=== PATIENT | female | born 1975 | race African-American/Black ===

== ENCOUNTER 2017-02-12 19:39 | Emergency (ER) | payer OTHER ==
[2017-02-12 19:53] VITALS: BP 139/95; PULSE 88; TEMP 98.6; BMI 33.9
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
== END 2017-02-12 23:42 | disposition home or self-care (01) ==
LOC: JERFT 19:39
DX: Z77.21 Contact with and (suspected) exposure to potentially hazardous body fluids (principal); X58.XXXA Exposure to other specified factors, initial encounter; Y93.89 Activity, other specified; Y92.238 Other place in hospital as the place of occurrence of the external cause; Y99.0 Civilian activity done for income or pay
CPT/HCPCS: 99281-25

== ENCOUNTER 2020-06-14 02:50 | Day surgery (SDC) | payer OTHER ==
[2020-06-14 03:53] VITALS: BMI 37.9
[2020-06-14 04:49] LABS: BASO % 0.4 % (0-2.0); EOS % 1.5 % (0-4.5); HEMATOCRIT 39.1 % (32.4-45.2); HEMOGLOBIN 12.8 GM/dL (10.7-15.3); LYMPH % 14.7 % (8-40); MCH 30.5 pg (25.7-33.7); MCHC 32.6 g/dl (32.0-36.0); MEAN CELL VOLUME 93.7 fl (80-96); MONO % 4.8 % (3.8-10.2); NEUT % 78.6 % (42.8-82.8); PLATELET COUNT 366 K/MM3 (134-434); RBC 4.18 M/mm3 (3.60-5.2); RDW 13.7 % (11.6-15.6); WHITE BLOOD COUNT 10.1 K/mm3 (4.0-10.0)
[2020-06-14 05:00] LABS: INR 0.94 (0.83-1.09); PROTHROMBIN TIME (PATIENT) 11.6 SEC (9.7-13.0)
[2020-06-14 05:13] LABS: POTASSIUM 4.2 mmol/L (3.5-5.1)
[2020-06-14 05:15] LABS: CALCIUM 9.3 mg/dL (8.5-10.1)
[2020-06-14 05:16] LABS: ALBUMIN 4.2 g/dl (3.4-5.0); BLOOD UREA NITROGEN 10.8 mg/dL (7-18)
[2020-06-14 05:19] LABS: CREATININE 1.1 mg/dL (0.55-1.3)
[2020-06-14 05:20] LABS: BILIRUBIN,TOTAL 0.2 mg/dL (0.2-1); TOT PROT 8.4 g/dl (6.4-8.2)
[2020-06-14] MEDS ORDERED: ONDANSETRON 4 MG/2 ML VIAL IVPUSH PRN ×4 (05:57→09:27)
[2020-06-14] MEDS ORDERED: BISACODYL 5 MG TABLET.DR (FP) PO PRN ×2 (05:57→09:27)
[2020-06-14] MEDS ORDERED: ACETAMINOPHEN 325 MG TABLET (FP) PO PRN ×2 (05:57→09:27)
[2020-06-14] MEDS ORDERED: SIMETHICONE 80 MG TAB.CHEW (FP) PO PRN ×2 (05:57→09:27)
[2020-06-14] MEDS ORDERED: oxyCODONE HCL 5 MG TABLET PO PRN ×4 (05:57→09:27)
[2020-06-14] MEDS ORDERED: DOCUSATE SODIUM 100 MG CAPSULE (FP) PO PRN ×2 (05:57→09:27)
[2020-06-14] MEDS ORDERED: IBUPROFEN 800 MG/8 ML IJ IVPB PRN (05:57)
[2020-06-14] MEDS ORDERED: SUCCINYLCHOLINE CHLORIDE 200 MG/10 ML SYRINGE ONE (05:58)
[2020-06-14] MEDS ORDERED: ROCURONIUM BROMIDE 50 MG/5 ML SYRINGE ONE (05:58)
[2020-06-14] MEDS ORDERED: fentaNYL CITRATE 250 MCG/5 ML VIAL ONE (05:58)
[2020-06-14] MEDS ORDERED: PROPOFOL 20 ML ONE ×4 (05:58)
[2020-06-14] MEDS ORDERED: LACTATED RINGERS SOLUTION 1,000 ML/1,000 ML INFUS.BAG IV SCH ×2 (06:00)
[2020-06-14] MEDS ORDERED: ceFAZolin SODIUM 1 GM VIAL IVPB ONE (06:08)
[2020-06-14] MEDS ORDERED: GLYCOPYRROLATE 0.2 MG/1 ML VIAL ONE ×2 (06:49)
[2020-06-14] MEDS ORDERED: NEOSTIGMINE METHYLSULFATE 0.5 MG/ML - 10 ML MDV ONE (06:49)
[2020-06-14] MEDS ORDERED: DEXAMETHASONE SOD PHOSPHATE 4 MG/1 ML VIAL ONE (06:49)
[2020-06-14] MEDS ORDERED: HYDROmorphone HCl 2 MG/ML VIAL ONE (07:43)
[2020-06-14] MEDS ORDERED: HYDROmorphone HCl 2 MG/ML VIAL IVPUSH ONE ×2 (07:45→08:00)
[2020-06-14] MEDS ORDERED: LORazepam 2 MG/ML SDV VIAL IVPUSH ONE ×2 (08:00)
[2020-06-14] MEDS ORDERED: ACETAMINOPHEN INJECTION 100 ML IVPB ONE (08:21)
[2020-06-14] MEDS ORDERED: MIDAZOLAM HCL 2 MG/2 ML SINGLE DOSE VIAL ONE (08:22)
[2020-06-14] MEDS ORDERED: ACETAMINOPHEN 1000 MG/100 ML VIAL (NON FORMULARY) IVPB ONE ×3 (08:25→09:04)
[2020-06-14] MEDS ORDERED: MIDAZOLAM HCL 2 MG/2 ML SINGLE DOSE VIAL IVPUSH ONE ×3 (08:30→09:04)
[2020-06-14] MEDS ORDERED: LORazepam 2 MG/ML SDV VIAL ONE (08:50)
[2020-06-14] MEDS ORDERED: HYDROmorphone HCL CARPU-JECT 2 MG/1 ML DISP.SYRIN IVPUSH PRN ×2 (09:04→09:27)
[2020-06-14] MEDS ORDERED: LACTATED RINGERS SOLUTION 1,000 ML IV SCH ×2 (09:15)
[2020-06-14] MEDS ORDERED: CEFAZOLIN 1 GM/D5W 1 GM/50 ML BAG IVPB SCH (10:00)
[2020-06-14] MEDS ORDERED: HYDROmorphone HCl 2 MG/ML VIAL IVPUSH PRN (10:12)
[2020-06-14 10:38] VITALS: PULSE 107
[2020-06-14 13:26] VITALS: BP 106/60; TEMP 97.6
[2020-06-15] MEDS ORDERED: ENOXAPARIN NA (PORCINE) 40 MG/0.4 ML DISP.SYRIN SQ SCH (10:00)
== END 2020-06-14 14:00 | disposition home or self-care (01) ==
LOC: JER 02:50 → JASUSAT 03:52 → JER 05:29 → J3W 10:08 → JASUSAT 14:00
PROVIDERS: ATTEND Obstetrics & Gynecology
PROC: 10D17ZZ Extraction of Products of Conception, Retained, Via Natural or Artificial Opening (ICD-10-PCS; 2020-06-14)
PROC: 0W3J4ZZ Control Bleeding in Pelvic Cavity, Percutaneous Endoscopic Approach (ICD-10-PCS; principal; 2020-06-14 05:15)
DX: O03.4 Incomplete spontaneous abortion without complication (principal); N80.0 Endometriosis of uterus; N93.9 Abnormal uterine and vaginal bleeding, unspecified
CPT/HCPCS: 36415; 76817-TC; 80053; 84702; 85025; 85610; 85730; 86850; 86900; 86901; 88305-TC; 94760; 99285-25; C9803; J0131; U0003

== ENCOUNTER 2021-01-13 21:15 | Emergency (ER) | payer OTHER ==
[2021-01-13 21:31] VITALS: BP 140/88; PULSE 85; TEMP 98.2; BMI 35.6
[2021-01-13] MEDS ORDERED: FAMOTIDINE 20 MG/50 ML IVPB 20 MG/50 ML MG IVPB ONE ×2 (21:49→22:49)
[2021-01-13] MEDS ORDERED: ACETAMINOPHEN 1000 MG/100 ML VIAL (NON FORMULARY) IVPB ONE (21:49)
[2021-01-13] MEDS ORDERED: METOCLOPRAMIDE HCL INJECTION 10 MG/2 ML VIAL IVPB ONE (21:49)
[2021-01-13] MEDS ORDERED: LACTATED RINGERS SOLUTION 1000 ML INFUS.BAG IV ONE (21:50)
[2021-01-13] MEDS ORDERED: DICYCLOMINE HCL 20 MG TABLET PO ONE (22:11)
[2021-01-13 22:30] LABS: EOS % 3.3 % (0-4.5); HEMATOCRIT 32.6 % (32.4-45.2); HEMOGLOBIN 11.1 GM/dL (10.7-15.3); LYMPH % 31.9 % (8-40); MCH 30.5 pg (25.7-33.7); MCHC 34.1 g/dl (32.0-36.0); MEAN CELL VOLUME 89.4 fl (80-96); MEAN PLT VOLUME 7.7 fl (7.5-11.1); MONO % 12.6 % (3.8-10.2); NEUT % 51.2 % (42.8-82.8); PLATELET COUNT 321 10^3/uL (134-434); RBC 3.64 M/mm3 (3.60-5.2); WHITE BLOOD COUNT 4.1 K/mm3 (4.0-10.0)
[2021-01-13 22:35] LABS: EPI CELLS 4 /uL (0-25.1); HYALINE CASTS 0 /uL (0-3.1); URINE APPEARANCE CLEAR; URINE BACTERIA 88 /uL (0-1359); URINE BILIRUBIN NEGATIVE (NEGATIVE); URINE COLOR YELLOW; URINE GLUCOSE (UA) NEGATIVE (NEGATIVE); URINE KETONE NEGATIVE (NEGATIVE); URINE LEUK ESTERASE NEGATIVE (NEGATIVE); URINE NITRITE NEGATIVE (NEGATIVE); URINE PROTEIN NEGATIVE (NEGATIVE); URINE RBC 30 /uL (0-23.9); URINE UROBILINOGEN 0.2 mg/dL (0.2-1.0); URINE WBC 5 /uL (0-25.8)
[2021-01-13] MEDS ORDERED: METOCLOPRAMIDE HCL INJECTION 10 MG/2 ML VIAL ONE (22:48)
[2021-01-13] MEDS ORDERED: ACETAMINOPHEN INJECTION 100 ML IVPB ONE (22:49)
[2021-01-13 22:52] LABS: CHLORIDE 106 mmol/L (98-107); SODIUM 138 mmol/L (136-145)
[2021-01-13 22:56] LABS: ALBUMIN 3.5 g/dl (3.4-5.0); ANION GAP 8 MMOL/L (8-16); BLOOD UREA NITROGEN 11.3 mg/dL (7-18); CALCIUM 8.8 mg/dL (8.5-10.1); CO2 23 mmol/L (21-32); GLUCOSE,RANDOM 85 mg/dL (74-106); LIPASE 120 U/L (73-393)
[2021-01-13 23:00] LABS: CREATININE 0.9 mg/dL (0.55-1.3); SGOT/AST 33 U/L (15-37); SGPT/ALT 33 U/L (13-61)
[2021-01-13 23:01] LABS: ALK PHOS 70 U/L (45-117); BILIRUBIN,TOTAL 0.3 mg/dL (0.2-1); TOT PROT 7.8 g/dl (6.4-8.2)
[2021-01-13] MEDS ORDERED: DICYCLOMINE HCL 10 MG CAPSULE ONE (23:49)
== END 2021-01-14 00:59 | disposition home or self-care (01) ==
LOC: JER 21:15
PROC: 3E033NZ Introduction of Analgesics, Hypnotics, Sedatives into Peripheral Vein, Percutaneous Approach (ICD-10-PCS; principal; 2021-01-13)
PROC: 3E033GC Introduction of Other Therapeutic Substance into Peripheral Vein, Percutaneous Approach (ICD-10-PCS; 2021-01-13)
PROC: 3E033GC Introduction of Other Therapeutic Substance into Peripheral Vein, Percutaneous Approach (ICD-10-PCS; 2021-01-13)
DX: R11.2 Nausea with vomiting, unspecified (principal); R19.7 Diarrhea, unspecified
CPT/HCPCS: 36415; 71046-TC-FY; 74177-TC; 80053; 81003; 82550; 82553; 83690; 83735; 84484; 84703; 85025; 87086; 93005; 93010; 99285-25; J0131